=== PATIENT | male | born 1995 | race Caucasian/White ===

== ENCOUNTER 2019-12-27 17:33 | Emergency (ER) | payer OTHER ==
[2019-12-27 17:41] VITALS: BP 134/89; PULSE 100; RESP 16; TEMP 98.3
[2019-12-27] MEDS ORDERED: ORPHENADRINE 30 MG/ML 2 ML VIAL IM STA (17:55)
[2019-12-27] MEDS ORDERED: KETOROLAC 15 MG/ML 1 ML VIAL IM STA (17:55)
--- NOTE | 2019-12-27 18:02 | ED ---
General Adult HPI - General Chief complaint: Back Pain/Injury Stated complaint: Back Pain Time Seen by Provider: 12/27/19 17:47 Source: patient, RN notes reviewed Mode of arrival: ambulatory Limitations: no limitations - History of Present Illness Initial comments: 24-year-old male presents to the emergency room for a chief complaint of back pain. Patient has left mid lower back pain since this morning. States he was lifting when he felt a pull in his back. States he has pain that worsens with movement. Patient denies any weakness of the lower extremities. Denies bladder or bowel changes. Denies saddle anesthesia or radiating pain. Denies fevers or history of IV drug abuse. Patient has not yet taken anything for pain. Denies any other injuries.Patient has no other complaints at this time including shortness of breath, chest pain, abdominal pain, nausea or vomiting, headache, or visual changes. - Related Data Previous Rx's Medication Instructions Recorded Cyclobenzaprine [Flexeril] 10 mg PO TID #14 tab 12/27/19 Allergies Allergy/AdvReac Type Severity Reaction Status Date / Time No Known Allergies Allergy Verified 12/27/19 17:41 Review of Systems ROS Statement: Those systems with pertinent positive or pertinent negative responses have been documented in the HPI. ROS Other: All systems not noted in ROS Statement are negative. Past Medical History Past Medical History: No Reported History History of Any Multi-Drug Resistant Organisms: None Reported Past Surgical History: Orthopedic Surgery, Tonsillectomy Past Psychological History: No Psychological Hx Reported Smoking Status: Never smoker Past Alcohol Use History: Occasional Past Drug Use History: None Reported General Exam Limitations: no limitations General appearance: alert, in no apparent distress Head exam: Present: atraumatic, normocephalic, normal inspection Eye exam: Present: normal appearance, PERRL, EOMI. Absent: scleral icterus, conjunctival injection, periorbital swelling ENT exam: Present: normal exam, mucous membranes moist Neck exam: Present: normal inspection, full ROM. Absent: tenderness, meningismus, lymphadenopathy Respiratory exam: Present: normal lung sounds bilaterally. Absent: respiratory distress, wheezes, rales, rhonchi, stridor Cardiovascular Exam: Present: regular rate, normal rhythm, normal heart sounds. Absent: systolic murmur, diastolic murmur, rubs, gallop, clicks GI/Abdominal exam: Present: soft, normal bowel sounds. Absent: distended, tenderness, guarding, rebound, rigid Extremities exam: Present: normal capillary refill (Capillary refill less than 2 seconds) Back exam: Present: paraspinal tenderness (Left-sided lumbar paraspinal tenderness.), other (Ambulatory with antalgic gait.). Absent: CVA tenderness (R), CVA tenderness (L), vertebral tenderness Course Vital Signs 12/27/19 17:38 Temperature 98.3 F Pulse Rate 100 Respiratory 16 Rate Blood Pressure 134/89 O2 Sat by Pulse 99 Oximetry Medical Decision Making - Medical Decision Making X-ray of the lumbar spine is negative. Patient likely has a strain of his low back. I did discuss Motrin and Tylenol for pain. He will be given muscle relaxers but was educated not to drive or operate machinery while taking these. Patient was also educated that he could benefit from follow-up with orthopedics for MRI. If he has any worsening symptoms he'll return to the emergency room. Disposition Clinical Impression: Mechanical back pain Disposition: HOME SELF-CARE Condition: Good Instructions (If sedation given, give patient instructions): Acute Low Back Pain (ED) Additional Instructions: Please take Motrin and Tylenol for pain and you may alternate these every 3 hours. Take muscle relaxer as directed. Do not drive while taking this. Follow up with orthopedics. If you have any worsening symptoms such as bladder or bowel changes, numbness or tingling in the groin or buttock area, fevers, or weakness of the lower extremities return to the emergency room. Prescriptions: Cyclobenzaprine [Flexeril] 10 mg PO TID #14 tab Is patient prescribed a controlled substance at d/c from ED?: No Referrals: Dave Del Castillo MD [Primary Care Provider] - 1-2 days Maritza Richards DO [Doctor of Osteopathic Medicine] - 1-2 days Time of Disposition: 18:17
--- NOTE | 2019-12-27 18:12 | XR ---
EXAMINATION TYPE: XR lumbar spine 2 or 3V DATE OF EXAM: 12/27/2019 COMPARISON: NONE HISTORY: Back pain TECHNIQUE: 3 views FINDINGS: Lumbar vertebra have normal alignment. Disc spaces are normal. Posterior elements are intac t. There is no compression fracture. Sacroiliac joints appear normal. IMPRESSION: Negative lumbar spine exam.
== END 2019-12-27 18:52 | disposition home or self-care (01) ==
LOC: EC 17:33
DX: M54.5 Low back pain (principal); Z98.890 Other specified postprocedural states
CPT/HCPCS: 72100; 96372 ×2; 99283; J2360; J1885

== ENCOUNTER → 2020-12-14 | Outpatient (CLI) | payer BC ==
--- NOTE | 2020-12-14 16:05 | CT ---
EXAMINATION TYPE: CT abdomen pelvis w con DATE OF EXAM: 12/14/2020 COMPARISON: 08/10/2011 HISTORY: Epigastric pain, abdominal pain, c/o halitosis. Stat hold and call CT DLP: 1149 mGycm CONTRAST: CT scan of the abdomen and pelvis is performed with Oral Contrast and with IV Contrast, patient injec kinsey with 100 mL of Isovue 300. FINDINGS: LUNG BASES-: No visible nodule. No infiltrate. LIVER/GB: No calcified gallstones. No space occupying hepatic lesion. Biliary tree is of normal ca liber. PANCREAS: No inflammation. No distinct mass. SPLEEN: No splenic enlargement. No lesion seen. ADRENALS: No nodule. No thickening. KIDNEYS/BLADDER: No hydronephrosis. No nephrolithiasis. No distinct renal mass. Urinary bladder g rossly unremarkable. BOWEL: Normal appendix. Normal bowel caliber. No inflammation. GENITAL ORGANS: No gross abnormality. LYMPH NODES: No greater than 1cm abdominal or pelvic lymph nodes are appreciated. AORTA: No significant abnormality. OSSEOUS STRUCTURES: No significant abnormality is seen. OTHER: No significant additional abnormality is seen. IMPRESSION: 1. No significant abnormality to account for the patient's symptoms.
== END | disposition home or self-care (01) ==
LOC: RADCTMAIN 13:22
PROVIDERS: ATTEND Physician Assistant Medical
DX: R10.13 Epigastric pain (principal); R19.6 Halitosis
CPT/HCPCS: 74177; Q9967